=== PATIENT | male | born 1965 | race Hispanic/Latino ===

== ENCOUNTER 2023-10-02 06:38 | Day surgery (SDC) | payer OTHER ==
[2023-09-28 11:01] LABS: BASOPHILS # (AUTO) 0.02 K/uL (0.00-0.20); BASOPHILS % (AUTO) 0.7 % (0.0-5.0); EOSINOPHILS # (AUTO) 0.15 K/uL (0.00-0.70); HEMATOCRIT 33.4 % (42-54); IMMATURE GRANULOCYTE ABSOLUTE 0.01 K/uL (0-1); LYMPHOCYTES # (AUTO) 0.9 K/uL (1.0-4.8); LYMPHOCYTES % (AUTO) 30.2 % (21.0-51.0); MEAN CORPUSCULAR HGB CONC 31.7 g/dL (32.0-36.0); MEAN CORPUSCULAR VOLUME 107.1 fL (79-99); MONOCYTES # (AUTO) 0.3 K/uL (0.1-1.0); NEUTROPHILS # (AUTO) 1.6 K/uL (1.8-7.7); NEUTROPHILS % (AUTO) 53.8 % (40.0-77.0); PLATELET COUNT (AUTO) 144 K/uL (130-400); RED BLOOD CELL COUNT(AUTO) 3.12 MIL/uL (4.50-6.20); RED CELL DISTRIBUTION WIDTH 14.5 % (11.0-15.5)
[2023-09-28 11:23] LABS: ALBUMIN 2.5 g/dL (3.5-5.0); BILIRUBIN,TOTAL 0.5 mg/dL (0.2-1.0); CREATININE 5.8 mg/dL (0.5-1.3); POTASSIUM 4.7 mmol/L (3.5-5.1); TOTAL PROTEIN, SERUM 7.2 g/dL (6.0-8.3)
[2023-09-28 11:26] LABS: INR 1.08 (0.85-1.15); PARTIAL THROMBOPLASTIN TIME 29.7 SEC (26.3-35.5); PROTHROMBIN TIME 11.5 SEC (9.6-11.6)
[2023-09-28 11:29] VITALS: BP 160/82; PULSE 66; RESP 15
[2023-09-28 12:10] LABS: EOSINOPHILS % (MANUAL) 4 % (1-6); LYMPHOCYTES % (MANUAL) 28 % (22-44); MAN.DIFF COMMENT-IMPRESSION MANUAL DIFFERENTIAL; PLATELET MORPHOLOGY COMMENT ADEQUATE; SEGMENTED NEUTROPHILS % 68 % (40-70); TOTAL CELLS COUNTED 100
[~2023-10-02] VITALS: Ht 175.3 cm; Wt 92.1 kg
[2023-10-02] VITALS (15 sets, daily range): BP systolic 115–159; BP diastolic 61–77; PULSE 62–68; RESP 14–20
[~2023-10-02 06:38] MED LIST: AEC81 PO
[2023-10-02 08:07] LABS: CREATININE 4.5 mg/dL (0.5-1.3); POTASSIUM 3.9 mmol/L (3.5-5.1)
[2023-10-02] MEDS: ceFAZolin SODIUM 2 GM VIAL ONE (08:12)
[2023-10-02] MEDS: 0.9% NACL 500ML IV.SOLN 500 ML IV ONE (08:13)
[2023-10-02] MEDS ORDERED: BUPIvacaine/PF 0.25% 30ML VIAL IJ ONE (08:17)
[2023-10-02] MEDS ORDERED: LIDOCAINE HCL 1% 20 ML VIAL ONE (08:17)
[2023-10-02] MEDS ORDERED: LIDOCAINE PF 100MG/5ML (2%) SYRINGE 5ML ONE (08:33)
[2023-10-02] MEDS ORDERED: PROPOFOL 10 MG/ML 20ML VIAL IV ONE (08:34)
[2023-10-02] MEDS ORDERED: FENTANYL CITRATE PF 50 MCG/1 ML 2ML VIAL ONE ×2 (08:34→10:37)
[2023-10-02] MEDS ORDERED: ROCURONIUM BROMIDE 10MG/1ML 5ML VL ONE (08:34)
[2023-10-02] MEDS ORDERED: MIDAZOLAM HCL 1 MG/ML 2ML VIAL ONE (08:34)
[2023-10-02] MEDS: ceFAZolin SODIUM 2 GM VIAL IVPB ONE (08:45)
[2023-10-02] MEDS ORDERED: ONDANSETRON 4MG INJ ONE (08:51)
[2023-10-02] MEDS ORDERED: DEXAMETHASONE SOD PHOSPHATE 4 MG/ML 1ML VIAL ONE (08:51)
[2023-10-02] MEDS ORDERED: NEOSTIGMINE METHYLSULFATE 1MG/ML IV ONE (08:52)
[2023-10-02] MEDS ORDERED: GLYCOPYRROLATE 0.2 MG/ML 5 ML VIAL ONE (08:52)
[2023-10-02] MEDS ORDERED: PHENYLEPHRINE HCL 10 MG/ML 1ML VIAL IV ONE (08:59)
[2023-10-02] MEDS ORDERED: acetaMINOPHEN 1,000 MG/100 ML VIAL IV ONE (09:38)
[2023-10-02] MEDS ORDERED: MORPHINE 2 MG SYG ONE (09:39)
[2023-10-02] MEDS ORDERED: EPHEDRINE SULFATE 50 MG/ML AMPULE ONE (10:03)
[2023-10-02] MEDS ORDERED: PROTAMINE SULFATE 10 MG/ML 5 ML VIAL ONE (10:17)
== END 2023-10-02 12:25 | disposition home or self-care (01) ==
LOC: DAH 06:38
PROVIDERS: ATTEND Student in an Organized Health Care Education/Training Program
DX: I72.1 Aneurysm of artery of upper extremity (principal); I12.0 Hypertensive chronic kidney disease with stage 5 chronic kidney disease or end stage renal disease; E11.22 Type 2 diabetes mellitus with diabetic chronic kidney disease; N18.6 End stage renal disease; E66.9 Obesity, unspecified; Z96.653 Presence of artificial knee joint, bilateral; Z79.01 Long term (current) use of anticoagulants; Z79.899 Other long term (current) drug therapy; Z79.82 Long term (current) use of aspirin; Z68.29 Body mass index [BMI] 29.0-29.9, adult
CPT/HCPCS: 93005; 80053; 85025; 85610; 85730; 86850 ×2; 86900 ×2; 86901 ×2; 36415 ×2; 36832; 80048; 82948 ×2; 88304; A6260; J1100; A4510; A4663; J7040; J3010 ×2; J2270; J0665 ×2; J3490 ×3; J2001; J2720; J2250; J2704; J2405; J2710; J1644; J2371; J0690 ×2; G0168; A4649 ×3; C1713 ×3; C1768; A4215; A4223; A4222; A4221